=== PATIENT | male | born 1945 ===

== ENCOUNTER 2018-05-14 09:55 | Inpatient (IN) | payer OTHER ==
[~2018-05-14] VITALS: Ht 170.2 cm; Wt 3.0 kg
[2018-05-29] MEDS ORDERED: GABAPENTIN400 MG PO (11:39)
[2018-05-29] MEDS ORDERED: LISINOPRIL10 MG PO (11:39)
[2018-05-29] MEDS ORDERED: ASPIR 8181 MG PO (11:39)
[2018-05-29] MEDS ORDERED: TEMAZEPAM PO (11:40)
[2018-05-29] MEDS ORDERED: CEREFOLIN CAPL1 EACH PO (11:40)
[2018-05-29] MEDS ORDERED: OSTERA TABLET1 EACH PO (11:41)
[2018-06-17] MEDS ORDERED: Intestinex CAP PO (14:13)
[2018-06-17] MEDS ORDERED: OXYC1TAB9 PO (14:14)
== END 2018-06-17 14:32 | disposition home or self-care (01) | DRG 330 ==
LOC: O/R 06-05 11:22 → MEDJ 06-05 11:22 → MEDI 06-05 11:22 → SURG 06-05 11:30 → MEDI 06-05 21:51 → SURH 06-06 15:12 → MEDJ 06-06 15:38
PROVIDERS: Surgery
PROC: 07TC4ZZ Resection of Pelvis Lymphatic, Percutaneous Endoscopic Approach (ICD-10-PCS; 2018-06-05)
PROC: 0DTG4ZZ Resection of Left Large Intestine, Percutaneous Endoscopic Approach (ICD-10-PCS; principal; 2018-06-05 13:30)
PROC: 3E0336Z Introduction of Nutritional Substance into Peripheral Vein, Percutaneous Approach (ICD-10-PCS; 2018-06-12)
PROC: BW25Y0Z Computerized Tomography (CT Scan) of Chest, Abdomen and Pelvis using Other Contrast, Unenhanced and Enhanced (ICD-10-PCS; 2018-06-12)
PROC: 02HV33Z Insertion of Infusion Device into Superior Vena Cava, Percutaneous Approach (ICD-10-PCS; 2018-06-13)
DX: C18.6 Malignant neoplasm of descending colon (principal); K56.0 Paralytic ileus; K91.89 Other postprocedural complications and disorders of digestive system

== ENCOUNTER 2018-06-19 22:07 | Inpatient (IN) | payer OTHER ==
[~2018-06-19] VITALS: Ht 170.2 cm; Wt 77.1 kg
[~2018-06-19 22:07] MED LIST: ASPIR 8181 MG PO; CEREFOLIN CAPL1 EACH PO; GABAPENTIN400 MG PO; Intestinex CAP PO; LISINOPRIL10 MG PO; OSTERA TABLET1 EACH PO; OXYC1TAB9 PO; TEMAZEPAM PO
[2018-06-19] MEDS ORDERED: INTESTINEX680 M1 (22:31)
== END 2018-06-25 10:21 | disposition home or self-care (01) | DRG 378 ==
LOC: ER 22:07 → SEC-K 06-20 07:48 → SURH 06-20 17:59
PROC: 30233N1 Transfusion of Nonautologous Red Blood Cells into Peripheral Vein, Percutaneous Approach (ICD-10-PCS; 2018-06-20)
PROC: BW25ZZZ Computerized Tomography (CT Scan) of Chest, Abdomen and Pelvis (ICD-10-PCS; 2018-06-21)
PROC: 0DJD8ZZ Inspection of Lower Intestinal Tract, Via Natural or Artificial Opening Endoscopic (ICD-10-PCS; principal; 2018-06-24)
DX: K57.31 Diverticulosis of large intestine without perforation or abscess with bleeding (principal); D62 Acute posthemorrhagic anemia; C18.5 Malignant neoplasm of splenic flexure; R55 Syncope and collapse; S00.83XA Contusion of other part of head, initial encounter; W18.39XA Other fall on same level, initial encounter; Y93.89 Activity, other specified; Y92.091 Bathroom in other non-institutional residence as the place of occurrence of the external cause; Y99.8 Other external cause status; Z90.49 Acquired absence of other specified parts of digestive tract; K52.89 Other specified noninfective gastroenteritis and colitis